=== PATIENT | male | born 1965 | race Caucasian/White ===

== ENCOUNTER 2018-10-15 14:59 | Emergency (ER) | payer BC ==
[2018-10-15 15:07] VITALS: RESP 18
[2018-10-15] MEDS ORDERED: ACETAMINOPHEN TAB 500 MG TAB PO STA (15:56)
--- NOTE | 2018-10-15 15:58 | ED ---
General Adult HPI - General Chief complaint: Wound/Laceration Stated complaint: Left hand Lac Time Seen by Provider: 10/15/18 15:46 Source: patient, RN notes reviewed Mode of arrival: ambulatory Limitations: no limitations - History of Present Illness Initial comments: Patient is a 53-year-old male who presents emergency department with complaint of left hand laceration happened about 2:30 PM today. He reports he was using a saw and that it slipped and cut his palm. Reports he is not up-to-date on his tetanus vaccination and does not want it done. I encouraged him to consider having it. He reports he has not taken anything for pain and reports that he would like something here. Denies any loss of range of motion or decreased sensation. Patient denies any recent fever, chills, shortness of breath, chest pain, back pain, abdominal pain, nausea or vomiting, numbness or tingling, headaches or visual changes, or any other complaints. - Related Data Home Medications Medication Instructions Recorded Confirmed Sildenafil Citrate [Viagra] 25 mg PO ONCE PRN 12/17/14 05/03/16 Diazepam [Valium] 2 mg PO Q4H PRN 05/03/16 05/03/16 Methocarbamol [Robaxin] 500 mg PO Q4H PRN 05/03/16 05/03/16 Previous Rx's Medication Instructions Recorded Cephalexin [Keflex] 500 mg PO Q6HR 7 Days cap 10/15/18 Allergies Allergy/AdvReac Type Severity Reaction Status Date / Time No Known Allergies Allergy Verified 10/15/18 15:04 Review of Systems ROS Statement: Those systems with pertinent positive or pertinent negative responses have been documented in the HPI. ROS Other: All systems not noted in ROS Statement are negative. Past Medical History Past Medical History: No Reported History History of Any Multi-Drug Resistant Organisms: None Reported Additional Past Surgical History / Comment(s): REPAIR ANAL FISTULA APPROX 2002, BACK SURGERY February LAMINECTOMY, SPINAL TRANSPLANT DOWN AT [place] Past Anesthesia/Blood Transfusion Reactions: No Reported Reaction Past Psychological History: No Psychological Hx Reported Smoking Status: Never smoker Past Alcohol Use History: Occasional Past Drug Use History: None Reported General Exam Limitations: no limitations General appearance: alert, in no apparent distress Head exam: Present: atraumatic, normocephalic Eye exam: Present: normal appearance Respiratory exam: Present: normal lung sounds bilaterally. Absent: wheezes, rales, rhonchi Cardiovascular Exam: Present: regular rate, normal rhythm Extremities exam: Present: full ROM, normal capillary refill, other (Left hand with laceration. Full range of motion of thumb. Able to maintain finger extension against resistance.) Neurological exam: Present: alert, oriented X3 Psychiatric exam: Present: normal affect, normal mood Skin exam: Present: warm, dry Course Vital Signs 10/15/18 10/15/18 15:04 19:14 Temperature 97.5 F L 98.0 F Pulse Rate 80 58 L Respiratory 18 18 Rate Blood Pressure 161/90 147/78 O2 Sat by Pulse 98 95 Oximetry Procedures - Laceration Laceration #1 Consent Obtained: verbal consent Indication: laceration Site: hand Size (cm): 8 Description: linear Depth: simple, single layer Sedation/Analgesia: none Anesthetic Used: lidocaine 1%, without epi Anesthesia Technique: local infiltration Amount (mls): 9 Pre-repair: wound explored, irrigated extensively, foreign body removed Type of Sutures: nylon Size of Sutures: 4-0 Number of Sutures: 13 Technique: simple, interrupted Patient Tolerated Procedure: well, no complications Additional Comments: Neurovascularly intact following procedure. Medical Decision Making - Medical Decision Making X-ray of left hand reveals small metallic densities. I removed foreign bodies. Repeat x-ray reveals no foreign bodies. The laceration was sutured. Will prescribe Keflex. Patient is to follow-up with orthopedics. Case discussed in detail with attending physician Dr. Acevedo. Disposition Clinical Impression: Laceration Disposition: HOME SELF-CARE Condition: Good Instructions (If sedation given, give patient instructions): Care For Your Stitches (ED) Additional Instructions: Follow-up with your PCP in 1-2 days. Please take antibiotics as prescribed. Follow-up with orthopedics in 1-2 days. Return to the emergency department or follow-up with your PCP in 14 days for suture removal. Return to the emergency department if any redness, swelling, drainage or fevers as this could indicate an infection. Prescriptions: Cephalexin [Keflex] 500 mg PO Q6HR 7 Days cap Is patient prescribed a controlled substance at d/c from ED?: No Referrals: Spike Riley MD [Primary Care Provider] - 1-2 days Time of Disposition: 19:12
--- NOTE | 2018-10-15 16:20 | XR ---
Left hand HISTORY: Laceration first digit 3 views of the left hand Osteoarthritic changes are noted incidentally. Lucency present at the level of the first digit of lef t hand. At the site of the lucency there are small metallic densities measuring approximately 1 to 2 mm, 2-3 densities are present at the level of or near the skin surface. No evident fracture or disloc ation. IMPRESSION: Small metallic densities may be foreign bodies rather than chip fractures.
[2018-10-15] MEDS ORDERED: LIDOCAINE 1% INJ 10MG/ML (20 ML MDV) SQ ONE (17:15)
--- NOTE | 2018-10-15 19:04 | XR ---
PROCEDURE: XR hand limited LT - 2 views DATE AND TIME: 10/15/2018 6:23 PM CLINICAL INDICATION: PHH; Foreign body TECHNIQUE: Department protocol COMPARISON: 10/15/2018 radiographs at 4:05 PM FINDINGS: There has been interval removal of the previously seen radiopaque foreign bodies. Currently there is no radiopaque foreign body. The soft tissues are unremarkable. IMPRESSION: Post removal of foreign bodies.
[2018-10-15 19:15] VITALS: BP 147/78; PULSE 58; TEMP 98
== END 2018-10-15 19:22 | disposition home or self-care (01) ==
LOC: EC 14:59
DX: S61.412A Laceration without foreign body of left hand, initial encounter (principal); Z94.89 Other transplanted organ and tissue status; W31.2XXA Contact with powered woodworking and forming machines, initial encounter; Y92.009 Unspecified place in unspecified non-institutional (private) residence as the place of occurrence of the external cause
CPT/HCPCS: 73120; 73130; 99283; 12004; J2001

== ENCOUNTER 2023-03-09 11:36 | Emergency (ER) | payer BC ==
[2023-03-09] MEDS ORDERED: OFLOXACIN 0.3% OPHTH DROPS 5 ML BOTTLE LEFT EAR STA (12:51)
--- NOTE | 2023-03-09 12:56 | ED ---
ENT HPI - General Chief complaint: ENT Stated complaint: foreign object lt ear Time Seen by Provider: 03/09/23 12:18 Source: patient, RN notes reviewed, old records reviewed Mode of arrival: ambulatory Limitations: no limitations - History of Present Illness Initial comments: This is a 57-year-old male to the emergency department for evaluation patient presents today for evaluation regards to ear pain. Patient was working on his car and got gas in his left ear severe pain in the left ear he did flush his face and ear without significant complaint of pain is persistent MD complaint: ear pain -: hour(s) Location: L ear Severity: severe Quality: burning Consistency: constant Improves with: none Worsens with: none Associated Symptoms: tinnitus, discharge from ear - Related Data Home Medications Medication Instructions Recorded Confirmed Sildenafil Citrate [Viagra] 25 mg PO ONCE PRN 12/17/14 05/03/16 diazePAM [Valium] 2 mg PO Q4H PRN 05/03/16 05/03/16 methocarbamoL [Robaxin] 500 mg PO Q4H PRN 05/03/16 05/03/16 Previous Rx's Medication Instructions Recorded Cephalexin [Keflex] 500 mg PO Q6HR 7 Days cap 10/15/18 Allergies Allergy/AdvReac Type Severity Reaction Status Date / Time No Known Allergies Allergy Verified 10/15/18 15:04 Review of Systems ROS Statement: Those systems with pertinent positive or pertinent negative responses have been documented in the HPI. ROS Other: All systems not noted in ROS Statement are negative. Past Medical History Past Medical History: No Reported History History of Any Multi-Drug Resistant Organisms: None Reported Additional Past Surgical History / Comment(s): REPAIR ANAL FISTULA 2002, BACK SURGERY February LAMINECTOMY, SPINAL TRANSPLANT DOWN AT [place] Past Anesthesia/Blood Transfusion Reactions: No Reported Reaction Past Psychological History: No Psychological Hx Reported Past Alcohol Use History: Occasional Past Drug Use History: None Reported General Exam Limitations: no limitations General appearance: alert, in no apparent distress Head exam: Present: atraumatic, normocephalic, normal inspection Eye exam: Present: normal appearance, PERRL, EOMI. Absent: scleral icterus, conjunctival injection, periorbital swelling ENT exam: Present: normal exam, mucous membranes moist Neck exam: Present: normal inspection. Absent: tenderness, meningismus, lymphadenopathy Respiratory exam: Present: normal lung sounds bilaterally. Absent: respiratory distress, wheezes, rales, rhonchi, stridor Cardiovascular Exam: Present: regular rate, normal rhythm, normal heart sounds. Absent: systolic murmur, diastolic murmur, rubs, gallop, clicks GI/Abdominal exam: Present: soft, normal bowel sounds. Absent: distended, tenderness, guarding, rebound, rigid Extremities exam: Present: normal inspection, full ROM, normal capillary refill. Absent: tenderness, pedal edema, joint swelling, calf tenderness Back exam: Present: normal inspection Neurological exam: Present: alert, oriented X3, CN II-XII intact Psychiatric exam: Present: normal affect, normal mood Skin exam: Present: warm, dry, intact, normal color. Absent: rash Course Vital Signs 03/09/23 03/09/23 11:43 13:28 Temperature 97.8 F 98.0 F Pulse Rate 69 64 Respiratory 16 17 Rate Blood Pressure 143/91 140/72 O2 Sat by Pulse 98 98 Oximetry - Reevaluation(s) Reevaluation #1: 03/09/23 22:31 Medical records reviewed Reevaluation #2: 03/09/23 22:31 Patient symptoms are improved Reevaluation #3: 03/09/23 22:31 patients informed of Results questions answered Reevaluation #4: 03/09/23 22:32 Was pt. sent in by a medical professional or institution? @ -no Did you speak to anyone other than the patient for history? @ -no Did you review nursing and triage notes? @ -agree Were old charts reviewed? @ -no Differential Diagnosis? @ -prior EKG interpreted by me (3pts min.)? @ -no X-rays interpreted by me (1pt min.)? @ -no CT interpreted by me (1pt min.)? @ -no U/S interpreted by me (1pt. min.)? @ -no What testing was considered but not performed? (CT, X-rays, U/S, labs)? Why? @ -no What meds were considered but not given? Why? @ -no Did you discuss the management of the patient with other professionals? @ -no Did you reconcile home meds? @ -no Was smoking cessation discussed for >3mins.? @ -no Was critical care preformed (if so, how long)? @ -no Were there social determinants of health that impacted care today? How? (Homelessness, low income, unemployed, alcoholism, drug addiction, transportation, low edu. Level, literacy, decrease access to med. care, nursing home, rehab)? @ -no Was there de-escalation of care discussed even if they declined? (Discuss DNR or withdrawal of care, Hospice)? @ -no What co-morbidities impacted this encounter? (DM, HTN, Smoking, COPD, CAD, Cancer, CVA, Hep., AIDS, mental health diagnosis, sleep apnea, morbid obesity)? @ -none Was patient admitted / discharged? @ -57-year-old male who had up with gas accidentally into his left ear. Patient is flushed here in the ER, patient symptoms are improved placed on antibiotics and can be discharged home Discharge Undiagnosed new problem with uncertain prognosis? @ -no Drug Therapy requiring intensive monitoring for toxicity (Heparin, Nitro, Insulin, Cardizem)? @ -no Were any procedures done? @ -no Diagnosis/symptom? @ -Foreign body left ear Acute, or Chronic, or Acute on Chronic? @ -no Uncomplicated (without systemic symptoms) or Complicated (systemic symptoms)? @ -uncomplicated Side effects of treatment? @ -no Exacerbation, Progression, or Severe Exacerbation] @ -no Poses a threat to life or bodily function? @ -no Medical Decision Making - Medical Decision Making 57-year-old male who had up with gas accidentally into his left ear. Patient is flushed here in the ER, patient symptoms are improved placed on antibiotics and can be discharged home Disposition Clinical Impression: Left ear pain Narrative: Gasoline in Left Ear Disposition: HOME SELF-CARE Condition: Good Instructions (If sedation given, give patient instructions): Earache (ED) Is patient prescribed a controlled substance at d/c from ED?: No Referrals: Spike Riley MD [Primary Care Provider] - 1-2 days Time of Disposition: 13:20
[2023-03-09 13:29] VITALS: BP 140/72; PULSE 64; RESP 17; TEMP 98
== END 2023-03-09 13:28 | disposition home or self-care (01) ==
LOC: EC 11:36
DX: T16.2XXA Foreign body in left ear, initial encounter (principal)
CPT/HCPCS: 99283

== ENCOUNTER → 2023-10-30 | Outpatient (CLI) | payer BC ==
--- NOTE | 2023-10-30 07:50 | US ---
EXAMINATION TYPE: US abdomen complete DATE OF EXAM: 10/30/2023 COMPARISON: NONE CLINICAL INDICATION: Male, 58 years old with history of R10.13 EPIGASTRIC PAIN; pain TECHNIQUE: Multiple sonographic images of the abdomen are obtained. FINDINGS: EXAM MEASUREMENTS: Liver Length: 12.3 cm Gallbladder Wall: .4 cm CBD: .5 cm Spleen: 11.2 cm Right Kidney: 11.0 x 4.6 x 4.2 cm Left Kidney: 10.9 x 5.2 x 3.6 cm Pancreas: Obscured by bowel gas Liver: wnl Gallbladder: NELLIE sign Evidence for sonographic Hicks's sign: no CBD: wnl Spleen: wnl Right Kidney: No hydronephrosis or masses seen Left Kidney: No hydronephrosis or masses seen Upper IVC: wnl Abd Aorta: wnl The liver is homogenous. The intrahepatic portion of the IVC and proximal abdominal aorta are within normal limits. There is a gallbladder fold gallstones with wall echo shadow sign. Common bile duct is unremarkable. The visualized portions of the pancreas are homogenous. The spleen is unremarkabl e. Kidneys are symmetric and free of hydronephrosis. No renal lesions are seen. IMPRESSION: 1. No evidence for acute process. 2. Gallbladder filled with gallstones.
== END | disposition home or self-care (01) ==
LOC: RADUSWWP 07:03
PROVIDERS: ATTEND Family Medicine
DX: K80.20 Calculus of gallbladder without cholecystitis without obstruction (principal)
CPT/HCPCS: 76700

== ENCOUNTER 2023-12-11 07:44 | Day surgery (SDC) | payer BC ==
[2023-12-09 11:09] VITALS: BMI 26.6
[2023-12-11] MEDS: LACTATED RINGERS 1,000 ML IV SCH (08:06)
[2023-12-11 08:19] VITALS: RESP 16; TEMP 97.8
--- NOTE | 2023-12-11 08:24 | P.GSHP ---
History of Present Illness H&P Date: 12/11/23 CHIEF COMPLAINT: Colon screen HISTORY OF PRESENT ILLNESS: The patient is a 58-year-old male who presents for colon screen. Lower endoscopy was offered for further evaluation and management. PAST MEDICAL HISTORY: Please see list. PAST SURGICAL HISTORY: Please see list. MEDICATIONS: Please see list. ALLERGIES: Please see list. SOCIAL HISTORY: No illicit drug use FAMILY HISTORY: No reports of Crohn disease or ulcerative colitis. REVIEW OF ORGAN SYSTEMS: CONSTITUTIONAL: No reports of fevers or chills. PHYSICAL EXAM: VITAL SIGNS: Stable GENERAL: Well-developed pleasant in no acute distress. HEENT: No scleral icterus. Extraocular movements grossly intact. Moist buccal mucosa. NECK: Supple without lymphadenopathy. CHEST: Unlabored respirations. Equal bilateral excursions. CARDIOVASCULAR: Regular rate and rhythm. Distal 2+ pulses. ABDOMEN: Soft, nontender, nondistended. MUSCULOSKELETAL: No clubbing, cyanosis, or edema. ASSESSMENT: 1. Colon screen. PLAN: 1. Recommend proceeding with a lower endoscopy Past Medical History Past Medical History: No Reported History Additional Past Medical History / Comment(s): hx gall stones History of Any Multi-Drug Resistant Organisms: None Reported Additional Past Surgical History / Comment(s): REPAIR ANAL FISTULA APPROX 2002, BACK SURGERY February LAMINECTOMY, SPINAL TRANSPLANT DOWN AT [place] Past Anesthesia/Blood Transfusion Reactions: No Reported Reaction Additional Past Anesthesia/Blood Transfusion Reaction / Comment(s): no blood transfusion Smoking Status: Never smoker Medications and Allergies Home Medications Medication Instructions Recorded Confirmed Type No Known Home Medications 12/09/23 12/11/23 History Allergies Allergy/AdvReac Type Severity Reaction Status Date / Time No Known Allergies Allergy Verified 12/11/23 08:07 Surgical - Exam Vital Signs Temp Pulse Resp BP Pulse Ox 97.8 F 60 16 151/81 98 12/11/23 08:08 12/11/23 08:08 12/11/23 08:08 12/11/23 08:08 12/11/23 08:08
[2023-12-11] MEDS ORDERED: LIDOCAINE 1% INJ 10MG/ML (20 ML MDV) ONE (08:26)
[2023-12-11] MEDS ORDERED: PROPOFOL 10 MG/ML 20 ML VIAL IV ONE (08:26)
--- NOTE | 2023-12-11 08:37 | P.HPADDEND ---
H&P Addendum H&P Addendum Date: 12/11/23 Patient presents first time in consultation. Incidentally he also reports severe epigastric abdominal pain with multiple attacks ongoing for over 1 year. Patient incidentally had prior workup where he had normal LFTs with severe abdominal pain. Attacks has been more aggressive. Recommend upper endoscopy for assessment of atypical chest pain, epigastric abdominal pain, hiatal hernia
--- NOTE | 2023-12-11 08:49 | P.PCN ---
Date of Procedure: 12/11/23 Description of Procedure: PREOPERATIVE DIAGNOSIS: Gastroesophageal reflux disease. Atypical chest pain Epigastric abdominal pain POSTOPERATIVE DIAGNOSIS: Gastroesophageal reflux disease with erosive esophagitis Franco's esophagus OPERATION: Esophagogastroduodenoscopy with biopsies along esophagus, antrum and duodenum SURGEON: Maryan Wesley MD ANESTHESIA: MAC. INDICATIONS: The patient is a 58-year-old male who presents with severe intermittent abdominal pain ongoing for over 1 year. Benefits and risks of the procedure were described. Informed consent was obtained. DESCRIPTION: The patient was brought into the endoscopy suite and laid in the left lateral decubitus position. An Olympus gastroscope was passed along the posterior oropharynx down to the distal esophagus where the squamocolumnar junction was encountered at 42 cm from the incisors. The stomach was entered and no bile reflux was found. Additional findings are listed below. Biopsies with cold forceps were obtained of the antrum. The first through third portion of the duodenum was examined. Retroflexion of the scope confirmed Hill grade 2 lower esophageal valve. The squamocolumnar junction demonstrated LA grade D erosive esophagitis with short segment. The stomach was desufflated. The patient tolerated the procedure well. FINDINGS: Squamocolumnar junction 42 cm from the incisors. Diaphragmatic hiatus at 43 cm. Hiatal hernia, 1 cm Hill grade 2 lower esophageal valve. LA grade D erosive esophagitis. Biopsies obtained Short segment Franco's, 1 cm Biopsies obtained of the duodenum. Chronic gastritis with biopsies obtained. RECOMMENDATIONS: Recommend treatment for Franco's esophagus, short segment
--- NOTE | 2023-12-11 09:24 | P.PCN ---
Date of Procedure: 12/11/23 Description of Procedure: PREOPERATIVE DIAGNOSIS: Colonoscopy screening. POSTOPERATIVE DIAGNOSIS: Colonoscopy screening. OPERATION: Colonoscopy to the cecum, ileocecal valve and appendiceal orifice. SURGEON: Maryan Wesley MD. ANESTHESIA: MAC. INDICATIONS: The patient is a 58-year-old male who presents for colonoscopy screening. Last colonoscopy 10 years ago. Benefits and risks were described and informed consent was obtained. DESCRIPTION OF PROCEDURE: The patient had undergone GoLytely prep. The patient had been brought into the operating room and laid in the left lateral decubitus position. After adequate intravenous sedation, the rectum was examined with 2% lidocaine jelly. No unloader al hemorrhoids were encountered. The rectal tone was within normal limits. No lesions were palpated in the rectal vault. An Olympus colonoscope was advanced until the cecum, ileocecal valve and appendiceal orifice were clearly viewed. The prep was excellent. No scattered diverticulosis was encountered. No colonic polyps were found. No evidence of focal colitis was found. Retroflexion of the scope demonstrated grade 1 internal hemorrhoids without active bleeding or inflammation. The colon was desufflated. The patient had tolerated the procedure well. Withdrawal time was over 6 minutes. FINDINGS: Aronchick preparation quality scale 1 (1-5) Internal hemorrhoids, grade 1 No external prolapsed hemorrhoids. No arteriovenous malformations. No adenomatous polyps. No focal colitis. No sigmoid diverticulosis RECOMMENDATIONS: Lower endoscopy , 2033 or Cologuard Plan - Discharge Summary Discharge Rx Participant: No New Discharge Prescriptions: Continue No Known Home Medications Discharge Medication List No Known Home Medications 12/09/23 [History] Follow up Appointment(s)/Referral(s): Maryan Wesley MD [STAFF PHYSICIAN] - 12/17/23 4:45 pm Patient Instructions/Handouts: GERD (Gastroesophageal Reflux Disease) (ED), Diet for Stomach Ulcers and Gastritis (GEN) Activity/Diet/Wound Care/Special Instructions: Colonoscopy in 2033 or Cologuard Discharge Disposition: HOME SELF-CARE
[2023-12-11 09:41] VITALS: BP 116/65; PULSE 57
--- NOTE | 2023-12-11 09:48 | P.PN ---
Progress Note - Text Progress Note Date: 12/11/23 Patient reports severe abdominal pain. Ultrasound of gallbladder independently reviewed also demonstrates multiple gallstones. Recommend a EKG for atypical chest pain. Also CBC and CMP advised prior to discharge. Follow-up in the office with results. Low-fat diet given in the interim. Start of omeprazole prescription given.
[2023-12-11 10:01] LABS: Basophils % (A) 1 %; Eosinophils # (A) 0.1 k/uL (0-0.7); Eosinophils % (A) 2 %; HCT 40.5 % (39.0-53.0); HGB 13.6 gm/dL (13.0-17.5); Lymphocytes # (A) 1.2 k/uL (1.0-4.8); Lymphocytes % (A) 23 %; MCH 30.1 pg (25.0-35.0); MCHC 33.5 g/dL (31.0-37.0); MCV 89.8 fL (80.0-100.0); Mean Platelet Volume 8.8; Monocytes # (A) 0.3 k/uL (0-1.0); Monocytes % (A) 5 %; Neutrophils # (A) 3.4 k/uL (1.3-7.7); Neutrophils % (A) 68 %; Platelet Count 147 k/uL (150-450); RBC 4.51 m/uL (4.30-5.90); RDW 12.4 % (11.5-15.5)
[2023-12-11 10:23] LABS: ALT 21 U/L (4-49); AST 28 U/L (17-59); African American GFR (CKD) >90 (>60 ml/min/1.73 sqM); Albumin 4.2 g/dL (3.5-5.0); Alkaline Phosphatase 67 U/L (38-126); Anion Gap 7 mmol/L; Blood Urea Nitrogen 14 mg/dL (9-20); Calcium 9.2 mg/dL (8.4-10.2); Carbon Dioxide 26 mmol/L (22-30); Chloride 104 mmol/L (98-107); Glucose 156 mg/dL (74-99); Non-African American GFR(CKD) 88 (>60 ml/min/1.73 sqM); Potassium 4.3 mmol/L (3.5-5.1); Sodium 137 mmol/L (137-145)
== END 2023-12-11 10:10 | disposition home or self-care (01) ==
LOC: ORWHC2ENDO 07:44
PROVIDERS: ATTEND Surgery Plastic and Reconstructive Surgery
DX: Z12.11 Encounter for screening for malignant neoplasm of colon (principal); K64.0 First degree hemorrhoids; K29.80 Duodenitis without bleeding; K31.9 Disease of stomach and duodenum, unspecified; K21.9 Gastro-esophageal reflux disease without esophagitis; K29.70 Gastritis, unspecified, without bleeding; K21.00 Gastro-esophageal reflux disease with esophagitis, without bleeding; K22.70 Barrett's esophagus without dysplasia; K44.9 Diaphragmatic hernia without obstruction or gangrene; Z79.899 Other long term (current) drug therapy; Z98.890 Other specified postprocedural states
CPT/HCPCS: 88305; 80053; 85025; 45378; 43239; J2001; J2704

== ENCOUNTER 2024-01-16 10:35 | Day surgery (SDC) | payer BC ==
[2024-01-15 13:57] VITALS: BMI 26.6
--- NOTE | 2024-01-16 10:07 | P.GSHP ---
History of Present Illness H&P Date: 01/16/24 CHIEF COMPLAINT: Cholecystitis HISTORY OF PRESENT ILLNESS: The patient is a 58-year-old male who presents with history of epigastric including right upper quadrant abdominal pain. He underwent diagnostic studies for the gallbladder. Separately his clinical picture was consistent with cholecystitis. Now he presents for surgical intervention. PAST MEDICAL HISTORY: Please see list PAST SURGICAL HISTORY: Please see list MEDICATIONS: Please see list ALLERGIES: Denies. SOCIAL HISTORY: No illicit drug use or recent tobacco use FAMILY HISTORY: Pertinent for gallbladder disease REVIEW OF ORGAN SYSTEMS: CONSTITUTIONAL: No reports of fevers or chills. HEENT: Denies any troubles with the vision or hearing. ENDOCRINE: No reports of hypothyroidism. No diabetes. RESPIRATORY: No recent pneumonias. CARDIOVASCULAR: Denies chest pain or palpitations GI: No blood in stools or constipation. MUSCULOSKELETAL: Has occasional joint pain including back pain. NEURO: No seizure disorders or headaches. No recent stroke. PSYCH: No depression or suicidal ideation. HEMATOLOGIC: No personal or family history of DVTs or pulmonary emboli. PHYSICAL EXAM: VITAL SIGNS: Afebrile vital signs stable GENERAL: Well-developed pleasant male in no acute distress. HEENT: No scleral icterus. Extraocular movements grossly intact. Moist buccal mucosa. NECK: Supple without lymphadenopathy. CHEST: Unlabored respirations. Equal bilateral excursions. CARDIOVASCULAR: Regular rate regular rhythm rhythm. Distal 2+ pulses. ABDOMEN: Soft, nondistended. Tender along the epigastrium and right upper quadrant. MUSCULOSKELETAL: No clubbing, cyanosis, or edema. NEURO : No focal or lateralizing signs. Cranial nerves II-12 within normal limits. PSYCH: Alert and oriented to person, place and time. SKIN: Well perfused. Good skin turgor. ASSESSMENT: 1. Epigastric and right upper quadrant abdominal pain 2. Chronic cholecystitis PLAN: 1. Will need a robotic cholecystectomy possible open. Benefits and risks were described. 2. Heparin for DVT prophylaxis 5000 units. 3. Antibiotic prophylaxis. 4. CBC and CMP and a procedure 5. Indocyanine green for gallbladder procedure Past Medical History Past Medical History: No Reported History Additional Past Medical History / Comment(s): gallstones,abdominal discomfort History of Any Multi-Drug Resistant Organisms: None Reported Additional Past Surgical History / Comment(s): REPAIR ANAL FISTULA APPROX 2002, LAMINECTOMY-2016 Past Anesthesia/Blood Transfusion Reactions: No Reported Reaction Smoking Status: Never smoker - Past Family History Mother Family Medical History: No Reported History Medications and Allergies Home Medications Medication Instructions Recorded Confirmed Type No Known Home Medications 01/15/24 01/15/24 History Allergies Allergy/AdvReac Type Severity Reaction Status Date / Time No Known Allergies Allergy Verified 01/15/24 13:15
[~2024-01-16 10:35] MED LIST: INDOCYANINE GREEN 25 MG VIAL IV STA
[2024-01-16] MEDS: LACTATED RINGERS 1,000 ML IV ONE ×3 (11:37→14:11)
[2024-01-16] MEDS: ONDANSETRON 4 MG/2 ML VIAL IVP PRN (11:42)
[2024-01-16] MEDS: ACETAMINOPHEN TAB 500 MG TAB PO PRN (11:42)
[2024-01-16 11:43] VITALS: TEMP 96.9
[2024-01-16] MEDS: DEXAMETHASONE SOD PHOSPHATE 4 MG/ML 1 ML VIAL IV ONE (11:43)
[2024-01-16] MEDS: HEPARIN SODIUM,PORCINE 5,000 UNIT/ML 1 ML VIAL SQ PRN (11:44)
[2024-01-16] MEDS ORDERED: NEOSTIGMINE 1 MG/ML 10 ML VIAL ONE (12:10)
[2024-01-16] MEDS ORDERED: MIDAZOLAM 2 MG/2 ML VIAL ONE (12:10)
[2024-01-16] MEDS ORDERED: LIDOCAINE 1% INJ 10MG/ML (20 ML MDV) ONE (12:10)
[2024-01-16] MEDS ORDERED: ePHEDrine 50 MG/ML 1 ML VIAL ONE (12:10)
[2024-01-16] MEDS ORDERED: ROCURONIUM 10 MG/ML (5 ML VIAL) IV ONE (12:10)
[2024-01-16] MEDS ORDERED: KETOROLAC 15 MG/ML 1 ML VIAL ONE (12:10)
[2024-01-16] MEDS ORDERED: SUCCINYLCHOLINE CHLORIDE 200 MG/10 ML VIAL IV ONE (12:10)
[2024-01-16] MEDS ORDERED: GLYCOPYRROLATE 0.2 MG/ML 2 ML VIAL ONE (12:10)
[2024-01-16] MEDS ORDERED: PHENYLEPHRINE 10 MG/ML VIAL ONE (12:10)
[2024-01-16] MEDS ORDERED: PROPOFOL 10 MG/ML 20 ML VIAL IV ONE (12:10)
[2024-01-16] MEDS ORDERED: fentaNYL (PF) 50 MCG/ML 2 ML AMP ONE (12:10)
[2024-01-16] MEDS: LIDOCAINE 1%-EPI 1:100,000 20 ML VIAL SQ ONE (12:37)
[2024-01-16 14:04] LABS: Basophils % (A) 0 %; Eosinophils # (A) 0.1 k/uL (0-0.7); Eosinophils % (A) 2 %; HCT 39.9 % (39.0-53.0); HGB 14.1 gm/dL (13.0-17.5); Lymphocytes # (A) 1.1 k/uL (1.0-4.8); Lymphocytes % (A) 27 %; MCH 31.5 pg (25.0-35.0); MCHC 35.4 g/dL (31.0-37.0); Mean Platelet Volume 9.4; Monocytes # (A) 0.2 k/uL (0-1.0); Monocytes % (A) 6 %; Neutrophils # (A) 2.6 k/uL (1.3-7.7); Neutrophils % (A) 63 %; Platelet Count 154 k/uL (150-450); RBC 4.49 m/uL (4.30-5.90); RDW 12.6 % (11.5-15.5); WBC 4.1 k/uL (3.8-10.6)
--- NOTE | 2024-01-16 14:32 | P.OP ---
Date of Procedure: 01/16/24 Description of Procedure: SURGEON: MARYAN WESLEY MD PREOPERATIVE DIAGNOSES: 1. Symptomatic gallstone 2. Right upper quadrant abdominal pain POSTOPERATIVE DIAGNOSES: 1. Symptomatic gallstones 2. Right upper quadrant abdominal pain 3. Chronic cholecystitis 4. Peritoneal adhesions, right upper quadrant OPERATION: 1. Robotic-assisted da Cha Xi laparoscopic lysis of adhesions over 50% of the case 2. Robotic-assisted da Cha Xi laparoscopic cholecystectomy, multiport with FIREFLY ESTIMATED BLOOD LOSS: 5 mL. SPECIMENS REMOVED: Gallbladder. COMPLICATIONS: None. OPERATIVE FINDINGS: 1. Moderate scarring over entire gallbladder with peritoneal adhesions, pericholecystic with features of chronic cholecystitis requiring extensive lysis of adhesions over 50% of the case 2. Large gallstone over 1 cm palpated INDICATIONS: The patient is a 58-year-old male who presents with symptomatic gallstones. Robotic assisted laparoscopic approach was described. Benefits and risks of the procedure including but not limited to bleeding, infection, injury to the biliary tree was described. Informed consent was obtained. DESCRIPTION OF PROCEDURE: Patient was brought to the operating room, placed in supine position. After general induction, the abdomen had been prepped and draped in standard sterile fashion. The robotic da Cha XI system was primed. After a timeout protocol was performed, the patient had been prepped and draped in standard sterile fashion. The patient was injected with indocyanine green. A 5 mm 0 degrees laparoscopic trocar entry was performed along the left upper quadrant. The abdomen insufflated to 15 mmHg pressure which was tolerated well. Diagnostic laparoscopy demonstrated no injury to bowel viscera or mesentery. The liver surface was unremarkable. Next, two 8 mm robotic ports were placed along the right upper abdomen. The camera 8-mm port was maintained along the epigastrium. Another 8 mm port was placed along the left upper abdominal wall after exchanging the 5 mm port. Please note that the ports were placed at least 10 to 15 cm away from the target anatomy of the gallbladder. The robot was docked along the left lateral abdomen. The patient was repositioned in reverse Trendelenburg position. Using a grasper for arm 3, a grasper for arm 4, including hook cautery for arm 1, the robotic system was docked and primed as described. Instruments were interchanged by the physician office assistant including hook cautery, Bovie cautery and clip appliers. I had sat at the console. The gallbladder was scarred with peritoneal adhesions. Lysis of adhesions was performed to free the gallbladder from the surrounding tissues requiring over 50% of the case as the gallbladder and soft tissue refused with the duodenum and hepatic fossa, bile duct. Next attention was brought to the infundibulum and cystic structures. The infundibulum and cystic duct were dissected free from surrounding tissues. The cystic duct was isolated. FIREFLY was used to identify the cystic artery and cystic structures. A critical view of safety was obtained. Large PLASTIC clips were used throughout the entire case. Using a clip automatic thread winder, 2 clips were placed at the junction of the infundibulum and cystic duct. The cystic duct was divided between clips. Electro-Bovie cautery was used to remove the gallbladder from the hepatic fossa. Hemostasis was checked and found to be adequate. The robot was undocked. I re-scrubbed into the case. Using a 10 mm Endo Catch bag via the left upper quadrant incision, the specimen was removed from the abdominal cavity. All pneumoperitoneum instruments were evacuated from the abdominal cavity. The incisions were reapproximated using 4-0 Monocryl in an interrupted subcuticular fashion. The fascia was widened for removal of the gallbladder requiring closure with 0 Vicryl and Jamison Brown. Fascial defects were less than 8 mm in size. Please note along the trocar sites, local anesthetic was placed as a field block prior to insertion of all instruments. Liquid glue was applied to the skin. At the end of the procedure needle, sponge, and instrument count had been verified correct by the surgical aide. The patient was transferred to postanesthesia care unit in stable condition. Intraoperative films were shared with the patient's family. Plan - Discharge Summary Discharge Rx Participant: No New Discharge Prescriptions: New Acetaminophen Tab [Tylenol Tab] 1,000 mg PO Q6HR PRN #30 tablet PRN Reason: Pain Simethicone [Gas-X] 125 mg PO AC-TID PRN #20 capsule PRN Reason: Pain Ibuprofen [Motrin] 600 mg PO Q8HR PRN #30 tab PRN Reason: Pain Discharge Medication List Acetaminophen Tab [Tylenol Tab] 1,000 mg PO Q6HR PRN #30 tablet 01/16/24 [Rx] Ibuprofen [Motrin] 600 mg PO Q8HR PRN #30 tab 01/16/24 [Rx] Simethicone [Gas-X] 125 mg PO AC-TID PRN #20 capsule 01/16/24 [Rx] Follow up Appointment(s)/Referral(s): Maryan Wesley MD [STAFF PHYSICIAN] - 01/21/24 (TELEHEALTH - WILL CALL YOU BETWEEN 9 am to 8 pm ) Patient Instructions/Handouts: Laparoscopic Cholecystectomy (DC), Low Fat Diet (DC) Activity/Diet/Wound Care/Special Instructions: TELEHEALTH - WILL CALL YOU BETWEEN 9 am to 8 pm Recommend low-fat diet for the next 2 days. No lifting over 10 pounds in 2 weeks until January 29. May shower. No bath tub soaks for two weeks until January 29. Diet as tolerated. Use Tylenol, simethicone and ibuprofen or Aleve scheduled for the next 24-48 hours for best pain relief. Use ice along incisions for today to prevent swelling. Discharge Disposition: HOME SELF-CARE
[2024-01-16 14:41] LABS: ALT 18 U/L (4-49); AST 25 U/L (17-59); African American GFR (CKD) >90 (>60 ml/min/1.73 sqM); Albumin 4.6 g/dL (3.5-5.0); Alkaline Phosphatase 78 U/L (38-126); Anion Gap 7 mmol/L; Blood Urea Nitrogen 13 mg/dL (9-20); Calcium 9.7 mg/dL (8.4-10.2); Carbon Dioxide 27 mmol/L (22-30); Chloride 105 mmol/L (98-107); Glucose 100 mg/dL (74-99); Non-African American GFR(CKD) >90 (>60 ml/min/1.73 sqM); Potassium 4.6 mmol/L (3.5-5.1); Sodium 139 mmol/L (137-145); Total Bilirubin 1.1 mg/dL (0.2-1.3); Total Protein 7.6 g/dL (6.3-8.2)
[2024-01-16 14:43] VITALS: BP 115/62; PULSE 57; RESP 17
== END 2024-01-16 15:16 | disposition home or self-care (01) ==
LOC: OR 10:35
PROVIDERS: ATTEND Surgery Plastic and Reconstructive Surgery
DX: K80.12 Calculus of gallbladder with acute and chronic cholecystitis without obstruction (principal); K66.0 Peritoneal adhesions (postprocedural) (postinfection); Z79.899 Other long term (current) drug therapy
CPT/HCPCS: 47563; S2900; 80053; 85025; 88304